=== PATIENT | female | born 1945 | race Two or more races ===

== ENCOUNTER 2019-06-03 06:33 | Emergency (ER) | payer OTHER ==
[~2019-06-03] VITALS: Ht 157.5 cm; Wt 78.0 kg
[2019-06-03] MEDS ORDERED: ATACAND32 MG (06:54)
[2019-06-03] MEDS ORDERED: FORTAMET500 MG (06:55)
[2019-06-03] MEDS ORDERED: ZOLOFT50 MG (06:55)
[2019-06-03] MEDS ORDERED: ATORVASTATIN CA10 MG (06:55)
[2019-06-03] MEDS ORDERED: NEURONTIN300 MG (06:55)
== END 2019-06-03 09:31 | disposition home or self-care (01) ==
LOC: ER 06:33
DX: D50.0 Iron deficiency anemia secondary to blood loss (chronic) (principal); K62.5 Hemorrhage of anus and rectum

== ENCOUNTER 2019-06-05 05:45 | Day surgery (SDC) | payer OTHER ==
[~2019-06-05 05:45] MED LIST: ATACAND32 MG; ATORVASTATIN CA10 MG; FORTAMET500 MG; NEURONTIN300 MG; ZOLOFT50 MG
== END 2019-06-05 09:40 | disposition home or self-care (01) ==
LOC: AMB-ENDOS 05:45
DX: D12.0 Benign neoplasm of cecum (principal); K57.30 Diverticulosis of large intestine without perforation or abscess without bleeding; K64.8 Other hemorrhoids